=== PATIENT | female | born 1975 | race Caucasian/White ===

== ENCOUNTER 2024-12-02 13:50 | Outpatient (REF) | payer OTHER, SELFPAY ==
--- NOTE | ~2024-12-02 | XR_ITS ---
EXAMINATION: XR LUMBOSACRAL SPINE CLINICAL INFORMATION: LOW BACK PAIN, AP,LAT. OBLIQUES,LAT SACRAL; fall one month ago. COMPARISON: None available. TECHNIQUE: 6 views of the lumbar spine, inclusive of bilateral oblique views, were obtained. FINDINGS: There is a minimal left convex scoliosis, apex at L3. There is a normal lordosis. There is no subluxation. No fracture, compression deformity, or suspicious bone lesion. Disc spaces appear largely preserved. Early disc degeneration L5-S1. There are mild hypertrophic degenerative facet changes spanning L4-S1. There are no pars defects on the oblique projections. No soft tissue abnormalities. XR/XR lumbar spine 4V min IMPRESSION: 1. No acute bony abnormalities. 2. Mild degenerative spondylosis most notable L4-S1. 3. Minimal left convex scoliosis. Electronically signed by: Von Robison MD 12/05/2024 03:50 PM EDT
== END 2024-12-02 13:51 | disposition home or self-care (01) ==
LOC: HO.XRAY 13:50
PROVIDERS: Visit Provider Nurse Practitioner Family
DX: M54.16 Radiculopathy, lumbar region (principal)
CPT/HCPCS: 72110

== ENCOUNTER → 2024-12-02 13:57 | Outpatient (BNV) | payer OTHER, SELFPAY | PROVIDERS: Visit Provider Radiology Diagnostic Radiology | DX: M54.50 Low back pain, unspecified (principal) | CPT/HCPCS: 72110 ==

== ENCOUNTER 2025-02-23 15:05 | Emergency (ER) | payer OTHER, SELFPAY ==
--- NOTE | 2025-02-23 | ECG_ITS ---
Test Reason : CHEST PAIN Blood Pressure : */* mmHG Vent. Rate : 126 BPM Atrial Rate : 126 BPM P-R Int : 170 ms QRS Dur : 82 ms QT Int : 280 ms P-R-T Axes : 34 55 -63 degrees QTcB Int : 405 ms Sinus tachycardia Left ventricular hypertrophy with repolarization abnormality ( Sokolow-Fleming ) Abnormal ECG When compared with ECG of 27-Nov-2008 07:40, Vent. rate has increased by 53 bpm Non-specific change in ST segment in Lateral leads T wave inversion more evident in Inferior leads T wave inversion now evident in Lateral leads Referred By: Generic ED Physician Electronically Signed By: SID SCHUSTER MD
--- NOTE | ~2025-02-23 | XR_ITS ---
EXAMINATION: XR CHEST CLINICAL INFORMATION: palpitations COMPARISON: None available. TECHNIQUE: 2 views of the chest were obtained. FINDINGS: Borderline cardiac enlargement. Hilar and mediastinal contours are normal. The lungs are clear bilaterally. There is no pneumothorax or pleural effusion. There is no focal osseous or soft tissue abnormality. XR/XR chest 2V IMPRESSION: Borderline cardiac enlargement. No active pulmonary disease. Electronically signed by: Von Robison MD 02/23/2025 04:07 PM EDT
[2025-02-23 15:05] VITALS: PULSE 130
[2025-02-23 15:22] VITALS: BMI 30.1
--- NOTE | 2025-02-23 15:22 | ED_ITS ---
HPI - Arrhythmia/Palpitations General Chief Complaint: Arrhythmia/Palpitations Stated Complaint: SVT? Time Seen by Provider: 02/23/25 15:14 Source: patient Mode of arrival: wheelchair Limitations: no limitations History of Present Illness ED Provider: HPI narrative: 50-year-old woman reports to be otherwise healthy, was having palpitations yesterday and today when she was at work started to have a limping palpitations, she has never had this before, denies any other medical problems, no history of recent heart surgeries, no new medications no fevers or chills, no prolonged trial. She is otherwise fairly asymptomatic except for palpitations. MD complaint: rapid heart beat, heart racing and palpitations Related Data Previous Rx's ?Medication ?Instructions ?Recorded metoprolol tartrate 25 mg tablet 12.5 mg (1/2 x 25 mg) PO DAILY 14 02/23/25 days #14 tabs Allergies Allergy/AdvReac Type Severity Reaction Status Date / Time iron dextran complex Allergy Anaphylaxis Verified 02/23/25 15:26 Review of Systems 2 Constitutional: Constitutional: Reports as per HPI [facility] Social History Social History Smoked in Last 30 Days: Yes Use of substances other than those prescribed or required for medical reasons: No Advance Directives: No Advance Directives Information Provided: No Physical Exam 2 Vital Signs: Vital Signs: Last Vital Signs Temp 97.9 F 02/23/25 15:38 Pulse 79 02/23/25 16:23 Resp 15 02/23/25 16:23 BP 169/100 H 02/23/25 15:38 Pulse Ox 98 02/23/25 16:23 O2 Del Method Room Air 02/23/25 15:38 BMI result Body Mass Index 30.1 Const: Other: * Gen: ?Overall well-appearing patient * HEENT: PERRLA, EOMI, MMM, * Neck: Supple, no LAD * CV: Fast and regular, no obvious murmurs appreciated * Resp: ?No wheezing rales rhonchi no stridor moving air well * Abd: ?Bowel sounds are present, no tenderness no rebound no rigidity * MSK: FROM, strength 5/5 all extremities * Skin: Warm, dry, intact, * Neuro: ?Alert and oriented x3, moving upper and lower extremities symmetrically, no obvious facial asymmetry noted Medications Administered Generic Name Dose Route Start Last Admin Trade Name Freq PRN Reason Stop Dose Admin Lactated Ringer's 1,000 mls @ 999 mls/hr 02/23/25 15:45 02/23/25 15:37 Lr IV 02/23/25 16:45 999 mls/hr .Q1H1M WALTER Administration Medical Decision Making Medical Decision Making [facility] Narrative: Presenting with palpitations, on ECG appears to be sinus tachycardia, I do not appreciate SVT, did not appreciate WPW or AFib, we will workup for PE, ACS, electrolyte derangements, thyroid issues, we will give fluids, determine her response, and then we will consider whether she needs medical treatment such as calcium channel blockers or adenosine. 16:28 patient re-evaluated, her heart rate is down to 80's workup has been reassuring, I will start her on a low-dose beta edmund she will follow up with the PCP she may need an event monitor, at the time of her d/c repeat ECG was obtained she is in NSR 76bpm, otherwise normal ECG without dysrhythmia, AV khushboo blocks or ST-T changes to suspect underlying ACS, my independent interpretation Differential Diagnosis Differential Diagnoses: The differential diagnosis associated with the presentation includes Dysrhythmia, thyroid issues, ACS, myocarditis, PE Admission/Observation Consideration of admission/observation: Escalation of care including admission/observation considered Lab Data [facility] Lab Attestation statement: I reviewed the patient's lab results. 02/23/25 15:24 02/23/25 15:24 Labs: Lab Results 02/23/25 02/23/25 Range/Units 15:24 15:25 WBC 8.1 (4.8-10.8) X10*3/uL RBC 4.08 L (4.20-5.50) X10*6/uL Hgb 12.6 (12.0-16.0) g/dl Hct 37.0 (37.0-47.0) % MCV 90.7 (80.0-98.0) fL MCH 30.9 (27.0-33.0) pg MCHC 34.1 (31.0-35.0) g/dl RDW 12.1 (11.0-16.0) % Plt Count 334 (160-400) X10*3/uL MPV 9.6 (9.4-12.3) fL Immature Gran % (Auto) 0.4 (0.0-0.4) % Neut % (Auto) 49.4 (45-73) % Lymph % (Auto) 42.3 H (20-40) % Ellis % (Auto) 6.1 (2-11) % Eos % (Auto) 1.4 (0-4) % Baso % (Auto) 0.4 (0-2) % Lymph # (Auto) 3.4 (1.2-4.9) X10*3/uL Ellis # (Auto) 0.5 (0.1-1.2) X10*3/uL Eos # (Auto) 0.1 (0.0-0.4) X10*3/uL Baso # (Auto) 0.0 (0.0-0.2) X10*3/uL Abs Immat Gran (auto) 0.03 (0.00-0.03) X10*3/uL Absolute Neuts (auto) 4.0 (2.0-8.3) x10*3/uL Absolute Nucleated RBC 0.000 (0.0-0.012) X10*3/uL Nucleated RBC % (auto) 0.0 (0.0-0.2) /100WBC D-Dimer High Sensitivty < 150 NG/ML Sodium 138 (135-145) mmol/L Potassium 3.9 (3.3-5.1) mmol/L Chloride 104 (96-108) mmol/L Carbon Dioxide 25 (22-29) mmol/L Anion Gap 13 (12-20) BUN 14 (9-16) mg/dL Creatinine 0.71 (0.5-1.4) mg/dL Estim Creat Clear Calc 75.0 Estimated GFR > 60 Random Glucose 112 (60-115) mg/dL Calcium 9.4 (8.4-10.2) mg/dL Magnesium 1.7 (1.6-2.6) mg/dL Total Bilirubin 0.3 (0.0-1.0) mg/dL AST 27 (5-31) U/L ALT 20 (0-31) U/L Troponin I High Sens < 2.7 (<3.5-17.0) ng/L Total Protein 7.7 (6.5-8.0) g/dL Albumin 4.1 (3.5-5.0) g/dL TSH 0.39 (0.32-4.0) uIU/mL Independent Interpretation I performed an independent interpretation of an: EKG (126, no evidence of delta waves or short SC to suspect WPW, no evidence to suspect underlying cardiac ischemia) Discharge Plan Discharge Clinical Impression: Palpitations Patient Disposition: Home, Self-Care Additional Instructions: Evaluated with palpitations, as discussed I expanded my workup to evaluate for any thyroid issues, anemia, blood clots thyroid issues, EKG revealed sinus tachycardia I did not appreciate any underlying cardiac rhythm but this is the 2nd day in a row that your experiencing this, I am going to start you on a low dose beta edmund which will also help you with high blood pressure, I would like him to follow up with the primary care physician, you may need a Holter monitor for 30 days just to see what is the underlying rhythm. discharge your back to a normal sinus rhythm on EKG. Worsening symptoms or concerns come back to the ER and as discussed the only thing I would recommend is that maybe if you come back to the emergency department I would obtain a CAT scan angiogram of your chest. Prescriptions: New metoprolol tartrate 25 mg tablet 12.5 mg PO DAILY 14 Days Qty: 14 0RF Stand Alone Forms: Work/School Release Print Language: Gambian
[2025-02-23 15:32] LABS: MANUAL DIFF FLAG NO
[2025-02-23 15:37] LABS: Basophils Percent Auto 0.4 % (0-2); Eosinophils Absolute Auto 0.1 X10*3/uL (0.0-0.4); Eosinophils Percent Auto 1.4 % (0-4); Hemoglobin 12.6 g/dl (12.0-16.0); Imm Gran Abs Auto 0.03 X10*3/uL (0.00-0.03); Imm Gran Pct Auto 0.4 % (0.0-0.4); Lymphocytes Absolute Auto 3.4 X10*3/uL (1.2-4.9); Lymphocytes Percent Auto 42.3 % (20-40); Mean Corpuscular HGB Conc 34.1 g/dl (31.0-35.0); Mean Corpuscular Hemoglobin 30.9 pg (27.0-33.0); Mean Corpuscular Volume 90.7 fL (80.0-98.0); Mean Platelet Volume 9.6 fL (9.4-12.3); Monocytes Absolute Auto 0.5 X10*3/uL (0.1-1.2); Monocytes Percent Auto 6.1 % (2-11); Neutrophils Percent Auto 49.4 % (45-73); Platelet Count 334 X10*3/uL (160-400); Red Blood Count 4.08 X10*6/uL (4.20-5.50); Red Cell Distribution Width 12.1 % (11.0-16.0); White Blood Count 8.1 X10*3/uL (4.8-10.8)
[2025-02-23] MEDS: Lactated Ringers 1,000 ML 999 ML IV (15:37)
[2025-02-23 15:38] VITALS: BP 169/100; PULSE 113; RESP 11; TEMP 36.6; O2SAT 97
--- NOTE | 2025-02-23 15:41 | PC.NURSE ---
pt roomed and placed on full monitor, pt is receiving fluids and HR is now Sinus tach. Pt denies CP, SOB N/V. No dizziness. Pt arrivedfrom work here at [facility] after feeling palpitations. She states it also happened last night at home but resolved.
[2025-02-23 15:58] LABS: Troponin-I High Sensitivity < 2.7 ng/L (<3.5-17.0)
[2025-02-23 16:02] LABS: Alanine Aminotransferase 20 U/L (0-31); Albumin Level 4.1 g/dL (3.5-5.0); Anion Gap 13 (12-20); Aspartate Amino Transferase 27 U/L (5-31); Bilirubin Total 0.3 mg/dL (0.0-1.0); Blood Urea Nitrogen 14 mg/dL (9-16); Calcium 9.4 mg/dL (8.4-10.2); Carbon Dioxide 25 mmol/L (22-29); Chloride 104 mmol/L (96-108); Estimated Glomerular Filt Rate > 60; Glucose Random 112 mg/dL (60-115); Magnesium 1.7 mg/dL (1.6-2.6); Potassium 3.9 mmol/L (3.3-5.1); Sodium 138 mmol/L (135-145); Total Protein 7.7 g/dL (6.5-8.0)
[2025-02-23 16:11] LABS: D Dimer High Sensitivity < 150 NG/ML
[2025-02-23 16:13] LABS: TSH reflex Free T4 0.39 uIU/mL (0.32-4.0)
[2025-02-23 16:23] VITALS: PULSE 79; RESP 15; O2SAT 98
--- NOTE | 2025-02-23 16:25 | PC.NURSE ---
Pt In NSR on monitor- VSS Ambulated to and from BR without symptoms. Provider in to explain planto patient- Pt agreeable. NAD No complaints
--- NOTE | 2025-02-23 16:41 | ECG_ITS ---
Test Reason : Hx palpatations Blood Pressure : */* mmHG Vent. Rate : 76 BPM Atrial Rate : 76 BPM P-R Int : 158 ms QRS Dur : 82 ms QT Int : 358 ms P-R-T Axes : 49 55 18 degrees QTcB Int : 402 ms Normal sinus rhythm Normal ECG When compared with ECG of 23-Feb-2025 15:14, Vent. rate has decreased by 50 bpm Non-specific change in ST segment in Lateral leads T wave inversion less evident in Inferior leads T wave inversion no longer evident in Lateral leads Referred By: Erik Murguia Electronically Signed By: SID SCHUSTER MD
[2025-02-23 16:54] VITALS: BP 173/91; PULSE 79; RESP 15; TEMP 36.8; O2SAT 98
[2025-02-23 16:59] LABS: Alkaline Phosphatase 72 U/L (39-117)
== END 2025-02-23 17:08 | disposition home or self-care (01) ==
PROVIDERS: Emergency Provider Emergency Medicine
DX: I49.9 Cardiac arrhythmia, unspecified (principal); R00.2 Palpitations; R00.0 Tachycardia, unspecified
CPT/HCPCS: 36415; 71046; 80053; 83735; 84443; 84484; 85025; 85379; 93005; 96360; 99284; 99285; J7120

== ENCOUNTER → 2025-02-23 15:14 | Outpatient (BNV) | payer OTHER, SELFPAY | PROVIDERS: Emergency Provider Emergency Medicine; Visit Provider Internal Medicine Cardiovascular Disease | DX: I51.7 Cardiomegaly (principal); R00.0 Tachycardia, unspecified; R00.2 Palpitations | CPT/HCPCS: 93010 ==

== ENCOUNTER → 2025-02-23 15:27 | Outpatient (BNV) | payer OTHER, SELFPAY | PROVIDERS: Emergency Provider Emergency Medicine; Visit Provider Radiology Diagnostic Radiology | DX: R00.2 Palpitations (principal) | CPT/HCPCS: 71046 ==

== ENCOUNTER 2025-02-27 15:58 | Emergency (ER) | payer OTHER, SELFPAY ==
--- NOTE | ~2025-02-27 | CT_ITS ---
CLINICAL HISTORY: CP, palpitations, tachycardia CT ANGIOGRAPHY CHEST WITH CONTRAST. 3D POSTPROCESSING. Comparison: None Findings: The heart size is normal. RV/LV ratio is normal. No thoracic aortic aneurysm or dissection. No acute pulmonary embolus. The visualized thyroid and mediastinum are unremarkable. No consolidation, pleural effusion or pneumothorax. No pulmonary mass or suspicious pulmonary nodule. Tiny calcified granuloma in the right lower lobe. The visualized upper abdomen is unremarkable. No acute fractures. IMPRESSION: 1. No pulmonary embolus. This document has been electronically signed by: Carolina Alexander DO on 02/27/2025 20:14:06
--- NOTE | 2025-02-27 16:00 | ECG_ITS ---
Test Reason : cp Blood Pressure : */* mmHG Vent. Rate : 140 BPM Atrial Rate : 140 BPM P-R Int : 146 ms QRS Dur : 84 ms QT Int : 278 ms P-R-T Axes : 51 58 -75 degrees QTcB Int : 424 ms Sinus tachycardia Minimal voltage criteria for LVH, may be normal variant ( Sokolow-Fleming ) ST & T wave abnormality, consider inferior ischemia Abnormal ECG When compared with ECG of 23-Feb-2025 16:35, Vent. rate has increased by [address] now depressed in Inferior leads ST now depressed in Lateral leads T wave inversion more evident in Inferior leads Nonspecific T wave abnormality now evident in Lateral leads Referred By: Generic ED Physician Electronically Signed By: CESIA HUYNH
[2025-02-27 16:07] VITALS: BP 169/103; PULSE 139; RESP 18; TEMP 36.8; O2SAT 98; BMI 30.6
--- NOTE | 2025-02-27 16:08 | ED_ITS ---
HPI - Arrhythmia/Palpitations General Chief Complaint: Arrhythmia/Palpitations Stated Complaint: chest pain,elevated heart rate Time Seen by Provider: 02/27/25 18:08 Source: patient Limitations: no limitations History of Present Illness ED Provider: kirk osborn np HPI narrative: Patient is a 50-year-old female who presents emergency department for evaluation of palpitations and diffuse nonradiating chest pressure. She reports that she had walked into work, did not climbing flights of stairs took the elevator but few minutes after getting onto the floor she began experiencing palpitations and a pressure in her chest. This lasted approximately 3 hours. At the time of my evaluation ( 19:00) she denies having any current palpitations or chest pain. She states that she was seen in the emergency department a few days ago with similar symptoms, she was prescribed metoprolol 12.5 mg daily which she has been taking in the evening. She did not take a dose tonight. She did follow up with her primary care doctor and orders were placed for Holter monitor she is awaiting scheduling at this time. She states that since her most recent visit she has had no further episodes of palpitations or chest pain. She denies having dizziness, lightheadedness, vision changes, neck pain, shortness of breath, numbness or tingling of the extremities, recent lower extremity redness pain or swelling, no history of VTE/ malignancy or prolonged immobilization Related Data Home Medications ?Medication ?Instructions ?Recorded ?Confirmed clonidine HCl 0.1 mg tablet 0.1 mg PO BEDTIME PRN Insomnia 02/27/25 02/27/25 estradiol 0.01% (0.1 mg/gram) 1 appl vaginal DAILY 02/27/25 02/27/25 vaginal cream Previous Rx's ?Medication ?Instructions ?Recorded metoprolol tartrate 25 mg tablet 12.5 mg (1/2 x 25 mg) PO DAILY 14 02/23/25 days #14 tabs Allergies Allergy/AdvReac Type Severity Reaction Status Date / Time iron dextran complex Allergy Anaphylaxis Verified 02/27/25 16:09 Review of Systems 2 Review of Systems: Yes all other systems are reviewed and are negative [facility] Past Medical History Attestation statement: The following information was validated with the patient. Source: old records reviewed Social History Social History Alcohol intake: current Alcohol intake frequency: holidays/special occasions only Physical Exam 2 Vital Signs: Vital Signs: Last Vital Signs Temp 97.8 F 02/27/25 21:21 Pulse 78 02/27/25 21:21 Resp 16 02/27/25 21:21 BP 174/90 H 02/27/25 21:21 Pulse Ox 10 L 02/27/25 21:21 O2 Del Method Room Air 02/27/25 21:21 BMI result Body Mass Index 30.6 Appearance: Alert.?Oriented to person, place and time. No acute distress.?Normal affect. Eyes: Pupils equal, round and reactive to light.? ENT: Pharynx normal.?? Neck: Normal inspection.? Neck supple.??No JVD. CVS: Heart sounds normal. Normal heart rate and rhythm.? Pulses normal.?? Respiratory: No respiratory distress.? Lung sounds clear to auscultation bilaterally?? Abdomen: Soft and non-tender. Normoactive bowel sounds. No pulsatile mass.?? Skin: Skin warm and dry.? Normal skin color.? ?? Extremities: No lower extremity edema.? No calf ttp? Neuro: Moves all extremities spontaneously. Sensation intact bilaterally. CN II- XII intact. No focal neuro deficits. Ambulates with normal steady gait. Course Course Course Narrative: This is an RME: Additional HPI, ROS, PE not included below will be deferred to primary provider. RME assessment and note performed by: Caty Rosario PA-C This is a [id number]-female who presents to the ER with complaints of palpitations and chest pressure. Was seen her on 02/23 for same, started on metoprolol. Was at work and her HR was in the 150s. Takes metoprolol at night, last dose was last night. TSH was checked last time she was here, was within normal limits. Plan: Labs, EKG, further ER eval needed Reevaluation(s) Reevaluation #1: CT angio of the chest negative for pulmonary embolism. Has remained in sinus rhythm with heart rate in the 70-80s while in the emergency department. No further episodes of chest pressure palpitations. At this time feel that she is stable for discharge home, outpatient follow-up with primary care provider as scheduled with thought they are monitoring. Given strict return precautions. All questions answered. Medications Administered Discontinued Medications Generic Name Dose Route Start Last Admin Trade Name Freq PRN Reason Stop Dose Admin Sodium Chloride 1,000 mls @ 999 mls/hr 02/27/25 19:30 02/27/25 19:39 Ns IV 02/27/25 20:30 999 mls/hr .Q1H1M WALTER Administration Iohexol 65 ml 02/27/25 19:36 02/27/25 19:36 Iohexol 350 Mg/Ml 100 Ml Infus..Btl IV 02/27/25 19:37 65 ml ONCE ONE Administration Medical Decision Making Medical Decision Making [facility] Narrative: Patient is a 50-year-old female with no reported past medical history recently seen in the ED 02/23/2025 with EKG revealing a sinus tachycardia an overall unremarkable workup, normalization of heart rate after receiving IV fluids and was started on a low-dose beta-edmund; metoprolol 12.5 mg as per HPI. She has been compliant with this. Today is the 1st episode where she has had recurrent symptoms. On arrival to emergency department she was noted to be hypertensive 169/103 and tachycardic at 139bpm. she is without hypoxia tachypnea and is afebrile overall she is well-appearing at the time of my evaluation, Appears to have a normal sinus rhythm on telemetry with pulse in the 70s. She had serum labs obtained leukocytosis anemia or thrombocytopenia. No electrolyte derangement. No MONA. LFTs unremarkable. High sensitive troponin within normal range. On her prior visit she had a D- dimer which was < 150, normal TSH, and otherwise unremarkable serum labs. She was advised that if she have worsening symptoms or concerns she should return for further evaluation, consider having CT angiogram of the chest. She does state that her symptoms felt worse today than previously. Will pursue CT angio of the chest at this time. Her initial EKG today revealed sinus tachycardia with ventricular rate of 140, normal SEA, QTC 424, no ST elevation. Differential Diagnosis Differential Diagnoses: The differential diagnosis associated with the presentation includes ( ACS, PE, arrhythmia, anemia, thyroid dysfunction, electrolyte derangement) Admission/Observation Consideration of admission/observation: Escalation of care including admission/observation considered (See narrative above and course narrative for further detail) Lab Data [facility] Lab Attestation statement: I reviewed the patient's lab results. 02/27/25 16:20 02/27/25 16:19 Labs: Lab Results 02/27/25 02/27/25 02/27/25 Range/Units 16:19 16:20 19:26 WBC 7.8 (4.8-10.8) X10*3/uL RBC 4.18 L (4.20-5.50) X10*6/uL Hgb 13.3 (12.0-16.0) g/dl Hct 37.9 (37.0-47.0) % MCV 90.7 (80.0-98.0) fL MCH 31.8 (27.0-33.0) pg MCHC 35.1 H (31.0-35.0) g/dl RDW 12.2 (11.0-16.0) % Plt Count 353 (160-400) X10*3/uL MPV 9.7 (9.4-12.3) fL Immature Gran % (Auto) 0.3 (0.0-0.4) % Neut % (Auto) 47.6 (45-73) % Lymph % (Auto) 42.4 H (20-40) % Lucas % (Auto) 7.1 (2-11) % Eos % (Auto) 2.1 (0-4) % Baso % (Auto) 0.5 (0-2) % Lymph # (Auto) 3.3 (1.2-4.9) X10*3/uL Lucas # (Auto) 0.6 (0.1-1.2) X10*3/uL Eos # (Auto) 0.2 (0.0-0.4) X10*3/uL Baso # (Auto) 0.0 (0.0-0.2) X10*3/uL Abs Immat Gran (auto) 0.02 (0.00-0.03) X10*3/uL Absolute Neuts (auto) 3.7 (2.0-8.3) x10*3/uL Absolute Nucleated RBC 0.000 (0.0-0.012) X10*3/uL Nucleated RBC % (auto) 0.0 (0.0-0.2) /100WBC Sodium 139 (135-145) mmol/L Potassium 4.2 (3.3-5.1) mmol/L Chloride 104 (96-108) mmol/L Carbon Dioxide 28 (22-29) mmol/L Anion Gap 11 L (12-20) BUN 12 (9-16) mg/dL Creatinine 0.77 (0.5-1.4) mg/dL Estim Creat Clear Calc 66.6 Estimated GFR > 60 Random Glucose 96 (60-115) mg/dL Calcium 9.6 (8.4-10.2) mg/dL Magnesium 2.0 (1.6-2.6) mg/dL Total Bilirubin 0.2 (0.0-1.0) mg/dL Direct Bilirubin < 0.2 (0.0-0.5) mg/dL AST 23 (5-31) U/L ALT 24 (0-31) U/L Alkaline Phosphatase 78 (39-117) U/L Troponin I High Sens 2.8 < 2.7 (<3.5-17.0) ng/L Total Protein 7.7 (6.5-8.0) g/dL Albumin 4.3 (3.5-5.0) g/dL Independent Interpretation I performed an independent interpretation of an: EKG ( See narrative above) Radiology Impression Discussion of test interpretation with radiology: I have reviewed the radiologist's reading. Radiologist Impression: CT ANGIOGRAPHY CHEST WITH CONTRAST. 3D POSTPROCESSING. Comparison: None Findings: The heart size is normal. RV/LV ratio is normal. No thoracic aortic aneurysm or dissection. No acute pulmonary embolus. The visualized thyroid and mediastinum are unremarkable. No consolidation, pleural effusion or pneumothorax. No pulmonary mass or suspicious pulmonary nodule. Tiny calcified granuloma in the right lower lobe. The visualized upper abdomen is unremarkable. No acute fractures. IMPRESSION: 1. No pulmonary embolus. Discharge Plan Discharge Clinical Impression: Sinus tachycardia, Palpitations Patient Disposition: Home, Self-Care Additional Instructions: CT angiogram of the chest was without evidence of a blood clot in the lungs or abnormal findings. This is very reassuring. Follow-up with your primary care doctor and take the metoprolol as previously prescribed Return to emergency department any new or worsening symptoms or concerns Prescriptions: No Action metoprolol tartrate 25 mg tablet 12.5 mg PO DAILY 14 Days Qty: 14 0RF clonidine HCl 0.1 mg tablet 0.1 mg PO BEDTIME PRN (Reason: Insomnia) estradiol 0.01 % (0.1 mg/gram) cream 1 appl vaginal DAILY Patient Comments: hasn't started this medication yet. was prescribed the medication today. Referrals: You Huff Jr, DO [Primary Care Provider] - Stand Alone Forms: Work/School Release Interventions: ED Discharge Assessment Last Done: 02/27/25 21:21 Discharge Date/Time: 02/27/25 21:22 Print Language: English
[2025-02-27 16:26] LABS: MANUAL DIFF FLAG NO
[2025-02-27 16:34] LABS: Basophils Percent Auto 0.5 % (0-2); Eosinophils Absolute Auto 0.2 X10*3/uL (0.0-0.4); Eosinophils Percent Auto 2.1 % (0-4); Hematocrit 37.9 % (37.0-47.0); Hemoglobin 13.3 g/dl (12.0-16.0); Imm Gran Abs Auto 0.02 X10*3/uL (0.00-0.03); Imm Gran Pct Auto 0.3 % (0.0-0.4); Lymphocytes Absolute Auto 3.3 X10*3/uL (1.2-4.9); Lymphocytes Percent Auto 42.4 % (20-40); Mean Corpuscular HGB Conc 35.1 g/dl (31.0-35.0); Mean Corpuscular Hemoglobin 31.8 pg (27.0-33.0); Mean Corpuscular Volume 90.7 fL (80.0-98.0); Mean Platelet Volume 9.7 fL (9.4-12.3); Monocytes Absolute Auto 0.6 X10*3/uL (0.1-1.2); Monocytes Percent Auto 7.1 % (2-11); Neutrophils Absolute Auto 3.7 x10*3/uL (2.0-8.3); Neutrophils Percent Auto 47.6 % (45-73); Platelet Count 353 X10*3/uL (160-400); Red Blood Count 4.18 X10*6/uL (4.20-5.50); Red Cell Distribution Width 12.2 % (11.0-16.0); White Blood Count 7.8 X10*3/uL (4.8-10.8)
[2025-02-27 16:47] LABS: Alanine Aminotransferase 24 U/L (0-31); Albumin Level 4.3 g/dL (3.5-5.0); Anion Gap 11 (12-20); Aspartate Amino Transferase 23 U/L (5-31); Bilirubin Direct < 0.2 mg/dL (0.0-0.5); Bilirubin Total 0.2 mg/dL (0.0-1.0); Blood Urea Nitrogen 12 mg/dL (9-16); Calcium 9.6 mg/dL (8.4-10.2); Carbon Dioxide 28 mmol/L (22-29); Chloride 104 mmol/L (96-108); Creatinine Clr Calc Pharmacy 66.6; Estimated Glomerular Filt Rate > 60; Glucose Random 96 mg/dL (60-115); Potassium 4.2 mmol/L (3.3-5.1); Sodium 139 mmol/L (135-145); Total Protein 7.7 g/dL (6.5-8.0)
[2025-02-27 16:50] LABS: Troponin-I High Sensitivity 2.8 ng/L (<3.5-17.0)
[2025-02-27 17:41] LABS: Alkaline Phosphatase 78 U/L (39-117)
--- NOTE | 2025-02-27 19:31 | PC.NURSE ---
Away for CT/PE study. Will administer medication as ordered upon return. Ambulating with steady gait. 18g IV access established to left AC. Repeat troponin level drawn and sent to lab for analysis. Awaiting results.
[2025-02-27] MEDS: iohexoL 350 MG/ML 100 ML INFUS..BTL 65 ML IV (19:36)
[2025-02-27] MEDS: 0.9 % Sodium Chloride 1,000 ML 999 ML IV (19:39)
[2025-02-27 19:43] VITALS: BP 171/76; PULSE 78; RESP 16; O2SAT 98
[2025-02-27 19:54] LABS: Troponin-I High Sensitivity < 2.7 ng/L (<3.5-17.0)
[2025-02-27 21:21] VITALS: BP 174/90; PULSE 78; RESP 16; TEMP 36.6; O2SAT 10
== END 2025-02-27 21:22 | disposition home or self-care (01) ==
PROVIDERS: Nurse Practitioner Family; Physician Assistant Medical; Emergency Provider Emergency Medicine; PCP Internal Medicine Nephrology
DX: R00.0 Tachycardia, unspecified (principal); I49.9 Cardiac arrhythmia, unspecified; R07.89 Other chest pain; R00.2 Palpitations; Z79.899 Other long term (current) drug therapy
CPT/HCPCS: 36415; 71275; 80048; 80076; 83735; 84484; 85025; 93005; 96360; 99284; 99285; Q9967

== ENCOUNTER → 2025-02-27 16:00 | Outpatient (BNV) | payer OTHER, SELFPAY | PROVIDERS: Emergency Provider Emergency Medicine; PCP Internal Medicine Nephrology; Visit Provider Internal Medicine | DX: R94.31 Abnormal electrocardiogram [ECG] [EKG] (principal); R00.0 Tachycardia, unspecified | CPT/HCPCS: 93010 ==

== ENCOUNTER → 2025-02-27 19:17 | Outpatient (BNV) | payer OTHER, SELFPAY | PROVIDERS: Emergency Provider Emergency Medicine; PCP Internal Medicine Nephrology; Visit Provider Radiology Diagnostic Radiology | DX: R07.9 Chest pain, unspecified (principal) | CPT/HCPCS: 71275 ==